=== PATIENT | female | born 1945 | race Caucasian/White ===

== ENCOUNTER → 2017-08-13 | Outpatient (CLI) | payer MEDICARE ==
[~2017-08-13] MED LIST: CETI10TA17 PO; CLOB30CR10 TP; CYCL10TA9 PO; ESCI10TA48 PO; ESCI5TAB10 PO; HYDR25TA4 PO; LACT1CAP62 PO; LVT.1T PO; MECL-124 PO; MULT-974 PO; NAPR-689 PO; NFBIOT1000 PO; OS CAL PO; POTA10TA36 PO; TRAM-21 PO; WELCHOL 625MG PO
--- NOTE | 2017-08-13 12:00 | Diagnostic Imaging Report ---
EXAM: DEXA scan. INDICATION: Screening for osteoporosis. FINDINGS: This study was compared to the prior exam of 03/21/2013. The bone mineral density of the hips and spine was measured. The T score for the spine is 0.3. On the prior exam, the T score was 0.5. The T score for the left hip is -1.3 and for the right hip -1.1. On the prior exam, the respective T scores were -1.2 and -1.0. IMPRESSION: When compared to the prior study, there has been no significant change. The T score for the spine remains within normal limits while there is mild osteopenia of both hip hip joints. Dictated by: Dictated on workstation # [id number]
--- NOTE | 2017-08-14 12:28 | Diagnostic Imaging Report ---
EXAMINATION: Digital mammogram bilateral screening. INDICATION: Screening. COMPARISON: This study was compared to the prior exams of 07/11/2016, 06/14/2015, and 03/30/2014. At this time, there are no current complaints. The current study was also evaluated with a Computer Aided Detection (CAD) system. FINDINGS: The fibroglandular tissue in both breasts is heterogeneously dense. This does limit the sensitivity of this exam. On the craniocaudad view of the right breast in the mid portion of the breast, approximately 7 cm deep to the nipple, there is a small area of increased density. There is no corresponding abnormality seen on the MLO view, and the tomographic images suggest that this finding is secondary to superimposition. The overall appearance of the breasts has not changed significantly otherwise. There is no primary or secondary sign of malignancy noted. The metallic device overlying the right pectoralis muscle seen previously is again evident and unchanged. IMPRESSION: 1. There is no evidence for malignancy. ACR BI-RADS Category 1: Negative. Result letter will be mailed to the patient. Note: At least 10% of breast cancer is not imaged by mammography. Dictated by: Dictated on workstation # [id number]
== END ==
LOC: RAD 10:00
PROVIDERS: ATTEND Obstetrics & Gynecology
DX: Z12.31 Encounter for screening mammogram for malignant neoplasm of breast (principal); M85.88 Other specified disorders of bone density and structure, other site
CPT/HCPCS: 77067; 77080

== ENCOUNTER → 2018-03-01 | Outpatient (CLI) | payer MEDICARE ==
--- NOTE | 2018-03-01 17:16 | Diagnostic Imaging Report ---
INDICATION: Left foot pain and swelling. FINDINGS: Three views of the left foot shows no fracture, dislocation or other acute bony abnormality. There is bunion formation involving the distal first metatarsal. IMPRESSION: There are degenerative changes present with no acute abnormality seen. Dictated by: Dictated on workstation # [id number]
== END ==
LOC: RAD 16:53
PROVIDERS: ATTEND Family Medicine
DX: M19.072 Primary osteoarthritis, left ankle and foot (principal)
CPT/HCPCS: 73630

== ENCOUNTER → 2018-08-17 | Outpatient (CLI) | payer MEDICARE ==
--- NOTE | 2018-08-17 13:03 | Diagnostic Imaging Report ---
INDICATION: Routine screening. COMPARISON: Comparison is made with prior mammograms from 08/13/2017 and 07/11/2016. TECHNIQUE: 2D and 3D bilateral screening mammography was performed with computer-aided detection (CAD) system. FINDINGS: Scattered fibroglandular densities are identified bilaterally. The parenchymal pattern is stable. No dominant mass or malignant-appearing microcalcifications are seen. Vjxbrj-j-Lrwp hub is located in the right axilla. Left axilla is unremarkable. IMPRESSION: No mammographic features suspicious for malignancy are identified. ACR BI-RADS Category 2: Benign findings. Result letter will be mailed to the patient. Note: At least 10% of breast cancer is not imaged by mammography. Dictated by: Dictated on workstation # [id number]
== END ==
LOC: RAD 09:06
PROVIDERS: ATTEND Obstetrics & Gynecology
DX: Z12.31 Encounter for screening mammogram for malignant neoplasm of breast (principal)
CPT/HCPCS: 77067

== ENCOUNTER 2018-09-26 09:30 | Emergency (ER) | payer MEDICARE | END 2018-09-26 09:40 | disposition left against medical advice (07) | LOC: ER 09:30 | DX: S69.92XA Unspecified injury of left wrist, hand and finger(s), initial encounter (principal); X58.XXXA Exposure to other specified factors, initial encounter ==

== ENCOUNTER → 2018-09-26 | Outpatient (CLI) | payer MEDICARE ==
--- NOTE | 2018-09-26 12:07 | Diagnostic Imaging Report ---
INDICATION: Fall, left wrist pain. Three views of left wrist shows a comminuted impacted intra-articular fracture of the distal radius with mild dorsal impaction. There is an ulnar styloid fracture. Carpal bones are intact. IMPRESSION: There are fractures of the distal left radius and ulnar. Dictated by: Dictated on workstation # [id number]
== END ==
LOC: RAD 11:44
PROVIDERS: ATTEND Nurse Practitioner Family
DX: S52.572A Other intraarticular fracture of lower end of left radius, initial encounter for closed fracture (principal); S52.612A Displaced fracture of left ulna styloid process, initial encounter for closed fracture; W19.XXXA Unspecified fall, initial encounter
CPT/HCPCS: 73110

== ENCOUNTER → 2018-12-27 | Outpatient (CLI) | payer MEDICARE | LOC: CARD 09:47 | PROVIDERS: ATTEND Internal Medicine Cardiovascular Disease | DX: R07.89 Other chest pain (principal); I10 Essential (primary) hypertension; R00.2 Palpitations | CPT/HCPCS: 93351 ==

== ENCOUNTER → 2019-09-06 | Outpatient (CLI) | payer MEDICARE ==
--- NOTE | 2019-09-06 11:02 | Diagnostic Imaging Report ---
INDICATION: Postmenopausal state. COMPARISON: 08/13/2017 FINDINGS: AP Spine L1-L4: [BMD (g/cm2): 1.197] [T-Score: 0.0] [Z-Score: 1.6] [BMD Previous: 1.238] [BMD % Change: -3.3] LT Hip Neck: [BMD (g/cm2): 0.774] [T-Score: -1.9] [Z-Score: -0.1] LT Hip Total: [BMD (g/cm2):0.852] [T-Score:-1.2] [Z-Score: 0.3] [BMD Previous: 0.847] [BMD % Change: 0.6] RT Hip Neck: [BMD (g/cm2):0.794] [T-Score:-1.8] [Z-Score:0.0] RT Hip Total: [BMD (g/cm2):0.859] [T-score:-1.2] [Z-Score:0.4] [BMD Previous:0.869] [BMD % Change:-1.2] *Indicates significant change from prior examination based on 95% confidence level. World Health Organization criteria for BMD interpretation classify patients as Normal (T-score at or above -1.0), Osteopenic (T-score between -1.0 and -2.5) or Osteoporotic (T-score at or below -2.5). LIMITATIONS AND MODIFICATION: None. FRACTURE RISK (FRAX SCORE): The ten year probability of (%): Major Osteoporotic Fracture: [18.0] Hip Fracture: [3.8] IMPRESSION: 1. Osteopenia (Low bone mass). 2. No significant change in bone mineral density since prior examination. 3. See below National Osteoporosis Foundation guidelines on when to potentially initiate pharmacologic therapy. Based on the National Osteoporosis Foundation Guidelines, pharmacologic treatment should be initiated in any of the following, unless clinical conditions suggest otherwise: * Any patient with prior fragility fracture of the hip or vertebrae. A spine fracture indicates 5X risk for subsequent spine fracture and 2X risk for subsequent hip fracture. * Osteoporosis (T-score <-2.5). * Postmenopausal women and men age 50 and older with low bone mass/osteopenia (T-score between -1.0 and -2.5) by DXA and 10-year major osteoporotic fracture greater than 20% or a 10-year probability of hip fracture greater than 3%. These fracture risks are supplied above in the FRAX score, if applicable. * Clinician judgement and/or patient preferences may indicate treatment for people with 10-year fracture probabilities above or below these levels. Dictated by: Dictated on workstation # [id number]
--- NOTE | 2019-09-06 14:51 | Diagnostic Imaging Report ---
INDICATION: Routine screening. COMPARISON: 08/17/2018 and 08/13/2017. TECHNIQUE: 2D and 3D bilateral screening mammography was performed with CAD. FINDINGS: Both breasts are heterogeneously dense, limiting the sensitivity of mammography. The parenchymal pattern is stable. No mass or malignant appearing microcalcifications are seen. There are benign calcifications. The axillae are unremarkable with the Btduyf-h-Grxi hub in the right axilla. IMPRESSION: No mammographic features suspicious for malignancy are identified. ACR BI-RADS Category 2: Benign findings. Result letter will be mailed to the patient. Note: At least 10% of breast cancer is not imaged by mammography. Dictated by: Dictated on workstation # [id number]
== END ==
LOC: RAD 09:56
PROVIDERS: ATTEND Obstetrics & Gynecology
DX: Z12.31 Encounter for screening mammogram for malignant neoplasm of breast (principal); M85.80 Other specified disorders of bone density and structure, unspecified site; Z78.0 Asymptomatic menopausal state
CPT/HCPCS: 77067; 77080

== ENCOUNTER → 2020-09-25 | Outpatient (CLI) | payer MEDICARE ==
--- NOTE | 2020-09-25 15:54 | Diagnostic Imaging Report ---
EXAMINATION: Digital mammogram bilateral screening with CAD. INDICATION: Screening. COMPARISON: This study was compared to the prior exams of 09/06/2019, 08/17/2018, and 08/13/2017. PERSONAL HISTORY: At this time, there are no current complaints. FINDINGS: The fibroglandular tissue in both breasts is heterogeneously dense. This does limit the sensitivity of this exam. Overall, there does not appear to have been any significant change when compared to the prior study. No primary or secondary sign of malignancy is noted. The small metallic density overlying the pectoralis muscle on the right seen on the previous exams is barely visible on this study. IMPRESSION: There is no radiographic evidence for malignancy. ACR BI-RADS Category 1: Negative. Result letter will be mailed to the patient. Note: At least 10% of breast cancer is not imaged by mammography. Dictated by: Dictated on workstation # [id number]
== END ==
LOC: RAD 10:47
PROVIDERS: ATTEND Obstetrics & Gynecology
DX: Z12.31 Encounter for screening mammogram for malignant neoplasm of breast (principal)
CPT/HCPCS: 77063; 77067

== ENCOUNTER 2021-07-05 07:59 | Outpatient (CLI) | payer MEDICARE ==
[~2021-07-05] VITALS: Ht 170 cm; Wt 67.0 kg
[2021-07-05] MEDS ORDERED: ACETAMINOPHEN 500 MG TAB (TYLENOL) PO PRN (08:00)
[2021-07-05] MEDS ORDERED: CASIRIVIMAB/IMDEVIMAB 1,200 MG in NS (IVPB) 250 ML IV ONE (08:00)
[2021-07-05] MEDS ORDERED: ONDANSETRON 4 MG/2 ML (SDV) Z0FRAN IV PRN (08:00)
[2021-07-05] MEDS ORDERED: diphenhydrAMINE 50 MG/ML INJ (BENADRYL) IV PRN (08:15)
[2021-07-05] MEDS ORDERED: EPINEPHrine INJECTION 1 MG/ML AMP IM PRN (08:15)
[2021-07-05 08:36] VITALS: BP 118/62
[2021-07-05 09:45] VITALS: BP 112/57
== END 2021-07-05 09:45 | disposition home or self-care (01) ==
LOC: INFUSION 07:59
PROVIDERS: ATTEND Family Medicine
DX: U07.1 COVID-19 (principal)

== ENCOUNTER → 2021-10-01 | Outpatient (CLI) | payer MEDICARE ==
--- NOTE | 2021-10-01 13:03 | Diagnostic Imaging Report ---
INDICATION: Routine screening. COMPARISON: 09/25/2020 and 09/06/2019. TECHNIQUE: 2D and 3D bilateral screening mammography was performed with CAD. FINDINGS: Both breasts are heterogeneously dense, limiting the sensitivity of mammography. The parenchymal pattern is stable. No mass or malignant-appearing microcalcifications are seen. There are occasional benign calcifications noted. Axillae are unremarkable. IMPRESSION: No mammographic features suspicious for malignancy are identified. ACR BI-RADS Category 2: Benign findings. Result letter will be mailed to the patient. Note: At least 10% of breast cancer is not imaged by mammography. Dictated by: Dictated on workstation # [id number]
--- NOTE | 2021-10-01 13:12 | Diagnostic Imaging Report ---
INDICATION: Postmenopausal screening COMPARISON: 09/06/2019 FINDINGS: AP Spine L1-L4: [BMD (g/cm2): 1.253] [T-Score: -0.4] [Z-Score: 2.1] [BMD Previous: 1.197] [BMD % Change: 4.7] LT Hip Neck: [BMD (g/cm2): 0.765] [T-Score: -2.0] [Z-Score: -0.1] LT Hip Total: [BMD (g/cm2):0.851] [T-Score:-1.2] [Z-Score: 0.4] [BMD Previous: 0.852] [BMD % Change: -0.1] RT Hip Neck: [BMD (g/cm2):0.848] [T-Score:-1.4] [Z-Score:0.5] RT Hip Total: [BMD (g/cm2):0.843] [T-score:-1.3] [Z-Score:0.3] [BMD Previous:0.859] [BMD % Change:-1.9] *Indicates significant change from prior examination based on 95% confidence level. World Health Organization criteria for BMD interpretation classify patients as Normal (T-score at or above -1.0), Osteopenic (T-score between -1.0 and -2.5) or Osteoporotic (T-score at or below -2.5). LIMITATIONS AND MODIFICATION: None. FRACTURE RISK (FRAX SCORE): The ten year probability of (%): Major Osteoporotic Fracture: [19.0] Hip Fracture: [4.6] IMPRESSION: 1. Osteopenia (Low bone mass). 2. No significant change in bone mineral density since prior examination. 3. See below National Osteoporosis Foundation guidelines on when to potentially initiate pharmacologic therapy. Based on the National Osteoporosis Foundation Guidelines, pharmacologic treatment should be initiated in any of the following, unless clinical conditions suggest otherwise: * Any patient with prior fragility fracture of the hip or vertebrae. A spine fracture indicates 5X risk for subsequent spine fracture and 2X risk for subsequent hip fracture. * Osteoporosis (T-score <-2.5). * Postmenopausal women and men age 50 and older with low bone mass/osteopenia (T-score between -1.0 and -2.5) by DXA and 10-year major osteoporotic fracture greater than 20% or a 10-year probability of hip fracture greater than 3%. These fracture risks are supplied above in the FRAX score, if applicable. * Clinician judgement and/or patient preferences may indicate treatment for people with 10-year fracture probabilities above or below these levels. Dictated by: Dictated on workstation # [id number]
== END ==
LOC: RAD 10:15
PROVIDERS: ATTEND Obstetrics & Gynecology
DX: Z12.31 Encounter for screening mammogram for malignant neoplasm of breast (principal); Z13.820 Encounter for screening for osteoporosis; M85.89 Other specified disorders of bone density and structure, multiple sites
CPT/HCPCS: 77063; 77067; 77080

== ENCOUNTER → 2022-10-02 | Outpatient (CLI) | payer MEDICARE ==
--- NOTE | 2022-10-02 12:48 | Diagnostic Imaging Report ---
INDICATION: Routine screening. Comparison is made with prior mammogram 10/01/2021 and 09/25/2020. 2-D and 3-D bilateral screening mammography was performed with CAD. Both breasts are heterogeneously dense, limiting the sensitivity of mammography. The parenchymal pattern is stable. No mass or malignant-appearing microcalcifications are seen. There are benign calcifications noted. Axillae are unremarkable. IMPRESSION: BI-RADS Category 2 No mammographic features suspicious for malignancy are identified. ACR BI-RADS Category 2: Benign findings. Result letter will be mailed to the patient. Note: At least 10% of breast cancer is not imaged by mammography. Dictated by: Dictated on workstation # [id number]
== END ==
LOC: RAD 10:15
PROVIDERS: ATTEND Obstetrics & Gynecology
DX: Z12.31 Encounter for screening mammogram for malignant neoplasm of breast (principal)
CPT/HCPCS: 77063; 77067

== ENCOUNTER → 2022-12-04 | Outpatient (CLI) | payer MEDICARE | LOC: CARD 10:29 | PROVIDERS: ATTEND Physician Assistant | DX: I10 Essential (primary) hypertension (principal); I25.10 Atherosclerotic heart disease of native coronary artery without angina pectoris; I34.0 Nonrheumatic mitral (valve) insufficiency | CPT/HCPCS: 93306 ==

== ENCOUNTER → 2022-12-24 | Outpatient (CLI) | payer MEDICARE ==
[~2022-12-24] MED LIST changes: +CATHETER FLUSH 10 ML SYR IVP PRN; +REGADENOSON 0.4 MG/5 ML SYR (LEXISCAN) IV ONE
[2022-12-24 09:29] VITALS: BP 122/67
--- NOTE | 2022-12-24 13:50 | Cardiology Stress Test Report ---
Stress Test Report Date of Procedure/Referring: Date of Procedure: December 24, 2022 PCP Estiven Severino MD Admitting Physician Admitting Physician: Attending Physician: Deborah Flores Baseline Heart Rate: 66 Baseline Blood Pressure: Blood Pressure Systolic: 122 Blood Pressure Diastolic: 67 Baseline Vitals Vital Signs Date Time Temp Pulse Resp B/P (MAP) Pulse Ox O2 Delivery O2 Flow Rate FiO2 12/24/22 09:29 81 18 122/67 (85) 99 Baseline EKG: Baseline EKG: NSR Summary After explaining the procedure to the patient, she signed a consent and then brought to the stress nuclear laboratory. Patient received 0.4 mg Lexiscan for stress test, ECG, heart rate and blood pressure were monitored continuously. Resting and stress dose of radio tracer were injected, imaging was acquired and reviewed in short axis, horizontal long axis and vertical long axis views. TID: 1.15 SSS: 2 SDS: 1 EF: 75 Patient tolerated Lexiscan well No significant ischemia or infarction on SPECT images Normal left ventricular size, ejection fraction 75% Copy Copies To 1: ESTIVEN SEVERINO MD, BASHAR J MD December 24, 2022 13:50
== END ==
LOC: CARD 07:40
PROVIDERS: ATTEND Physician Assistant
DX: I10 Essential (primary) hypertension (principal); I25.10 Atherosclerotic heart disease of native coronary artery without angina pectoris
CPT/HCPCS: 78452; 93017; A9502

== ENCOUNTER → 2023-05-22 | Outpatient (CLI) | payer MEDICARE ==
[~2023-05-22] MED LIST changes: -CATHETER FLUSH 10 ML SYR IVP PRN; -REGADENOSON 0.4 MG/5 ML SYR (LEXISCAN) IV ONE
== END ==
LOC: CARD 13:36
PROVIDERS: ATTEND Family Medicine
DX: R00.2 Palpitations (principal)
CPT/HCPCS: 93246